=== PATIENT | female | born 1990 | race American Indian/Alaskan Native ===

== ENCOUNTER 2016-12-09 06:10 | Day surgery (SDC) | payer MEDICAID ==
[~2016-12-09] VITALS: Ht 170.2 cm; Wt 112.0 kg
--- NOTE | ~2016-12-09 | OR ---
PATIENT'S NAME: CATHY ELIAS [facility] AGE: 26 Y [address] ROOM: [place] [address] LOCATION: [facility] [place] ADMIT DATE: 12/09/2016 OR/Procedure Report DISCHARGE DATE: FAMILY PHYSICIAN: Jorje Hernandez MD ATTENDING PHYSICIAN: Christy Butler SURGEON: Christy Butler MD HEALTH OCCUPATIONS TEACHER: Dee Bacon PA-C DATE OF PROCEDURE: 12/09/2016 PREOPERATIVE DIAGNOSES: 1. Cholelithiasis with chronic cholecystitis. 2. Obesity. POSTOPERATIVE DIAGNOSES: 1. Cholelithiasis with chronic cholecystitis. 2. Obesity. PROCEDURE PERFORMED: Laparoscopic cholecystectomy. ANESTHESIA: General endotracheal. ESTIMATED BLOOD LOSS: 10 mL. SPECIMEN: Gallbladder. REASON/INDICATION FOR PROCEDURE: The patient is a 26-year-old female, who has been having trouble with severe right upper quadrant pain for a while now. It has been constant in the last several days. She had an ultrasound which confirmed cholelithiasis. Her white count and liver function tests were normal. We discussed the risks and benefits of surgery versus ongoing observation. She elected to proceed with cholecystectomy. FINDINGS: The patient had some stones within the gallbladder. The cystic duct was just slightly on a full side. Procedure was otherwise uneventful. 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 PROCEDURE IN DETAIL: The patient was taken to the operating suite and placed in the supine position. After general endotracheal anesthesia was obtained, the abdomen was prepped with ChloraPrep and sterilely draped. Marcaine was infiltrated into the incision sites. A 2 cm transverse infraumbilical incision was made. The fascia was grasped and elevated. A Veress needle was used to obtain a pneumoperitoneum. An 11-mm trocar was then passed across the abdominal wall. Three 5-mm subcostal trocars were all placed under direct visualization. The gallbladder was identified. The fundus was grasped and elevated. A second grasper was then placed on the infundibulum. Dissection PATIENT'S NAME: CATHY ELIAS [facility] AGE: 26 Y [address] ROOM: [place] [address] LOCATION: [facility] [place] ADMIT DATE: 12/09/2016 OR/Procedure Report DISCHARGE DATE: FAMILY PHYSICIAN: Jorje Hernandez MD ATTENDING PHYSICIAN: Christy Butler of the neck area proved to be more of a challenge than usual. There was some chronic fibrosis and trying to completely expose the cystic duct was quite a challenge. It took a little while, but eventually we were able to skeletonize up this cystic duct all the way to the gallbladder wall. This cystic duct was just slightly enlarged, the clips did fit across it. After it had been stapled proximally and distally divided with scissors. The cystic artery was cauterized. The gallbladder was then mobilized free of the liver bed using cautery. Once fully mobilized, the gallbladder was removed from the umbilicus. The right upper quadrant was inspected. There were no signs of any ongoing bleeding or bile leak. The abdomen was scanned. There were some adhesions to the low midline and it looked like she might be starting to develop a hernia in the low midline. There was no bowel associated with it. The rest of the abdomen was unremarkable. The trocars were all withdrawn and the pneumoperitoneum was evacuated. The fascia at the umbilicus was closed with a [id number] Vicryl suture. The skin incisions were closed with subcuticular Monocryl. Benzoin, Steri-Strips, and gauze dressings were applied. POSTPROCEDURE PLAN: The patient will be sent to Recovery and then hopefully discharged to home if she is doing okay. She is given prescription for [place] for pain control. She can follow up with me or her primary care provider in 1 to 2 weeks for recheck. She is to call sooner if any major problems. CHRISTY BUTLER MD JTM/krishnal /[id number] d: 12/09/16 1437 t: 12/12/16 1217, OPERATIVE SUMMARY
[2016-12-09] MEDS ORDERED: NORCO 5-325 TA1 EACH PO (09:24)
[2016-12-09] MEDS ORDERED: MOTRIN600 MG PO (10:49)
== END 2016-12-09 10:55 | disposition disaster alternative care site (69) ==
LOC: GSDC 06:10
PROC: 0FT44ZZ Resection of Gallbladder, Percutaneous Endoscopic Approach (ICD-10-PCS; principal; 2016-12-09)
DX: K80.10 Calculus of gallbladder with chronic cholecystitis without obstruction (principal); Z90.49 Acquired absence of other specified parts of digestive tract; Z98.890 Other specified postprocedural states
CPT/HCPCS: J0694; J1100; J2250; J2405; J2550; J3010; J7120